=== PATIENT | male | born 1970 ===

== ENCOUNTER 2025-02-26 15:54 | Outpatient (AMB) | payer OTHER, SELFPAY ==
--- NOTE | 2025-02-26 16:01 | A.OFFVIS_ITS ---
Intake Visit Reasons: Headaches, MRI Review Allergies No Known Allergies Allergy (Verified 02/24/25 11:24) Medication List - Last Reconciled 02/26/25 by Guerita Reeves MD amlodipine 2.5 mg PO DAILY HPI Comments Details: This is a 55-year-old generally healthy man recently diagnosed with hypertension for which she has started lisinopril 5 mg a day. Towards the end of December without any trauma he developed pain in the right side of the face in the cheek area going to the eye with some blurring of the eye and pain in the right anterior temporal region which was constant and lasted about a month. There were times where it would be much more intense. The pain subsided spontaneously and there has been no pain in the last 1 month. Six months or 7 months prior to that he had had a tooth extraction from the right upper jaw but he was seen by an security manager and everything checked out to be normal. He has never had any symptoms like this before. He has some difficulty with and tenderness over the right eye. The vision has cleared but he has not seen an eye doctor. [facility] Medical History (Updated 02/26/25 @ 16:08 by Guerita Reeves MD) Headache Review of Systems Const Reports headache(s) Eyes Reports blurry vision ENT Reports otalgia, Reports headache(s) and Reports hearing loss GI Reports diarrhea Musc Reports arthralgias Neuro Details: Facial pain on the right Reports headache(s) Physical Exam Neuro Other: Mini Mental Status Exam Level of Consciousness:?Alert.? Orientation:?Knows correct year, month, date, day and season.?Knows correct cit y, county and state. Knows correct location and floor.? Registration:?Able to register 3 objects.? Attention:?Serial 7's performed?? accurately.? Recall:?Able to recall 3 out of 3 objects.? Language:?Normal spontaneous speech, fluency, repetition, naming, comprehension, reading, and writing.? ?? Total Score:?30/30.? Neurological Abnormal neurological findings:??Mild tenderness over right eye and right TMJ. ? Mental Status:?Alert and oriented X 3.?Normal attention, orientation, memory, and affect.? Cranial Nerves:?Pupils are equal, round and reactive to light. Fundoscopy shows normal disc bilaterally. External ocular muscles are intact. Visual brooks are full, no ptosis. Face is symmetrical, no facial weakness or droop. Facial sensations are normal.? Tongue protrudes in midline. Palate elevates symmetrically. Shoulder?? shrugging is normal.? Motor Examination:?Normal muscle tone, bulk and strength.?No atrophy or fasciculations.?No drift of the extended upper extremities.?Deep tendon reflexes are 2+.?Plantars?? are flexor.? ?Motor Strength:? Proximal Muscles (out of 5):?5 Distal Muscles (out of 5):?5 Neck Flexors (out of 5):?5 Neck Extensors (out of 5):?5 Deltoid (out of 5):?5 Biceps (out of 5):?5 Triceps (out of 5):?5 Serratus Anterior (out of 5):?5 Wrist Extensors (out of 5):?5 APB (out of 5):?5 Finger Spread (out of 5):?5 Ileopsoas (out of 5):?5 Quadriceps (out of 5):?5 Hamstrings (out of 5):?5 Tibialis Anterior (out of 5):?5 Peronei (out of 5):?5 EDB (out of 5):?5 Gastrocnemius (out of 5):?5 Straight Leg Raising:?90 degrees.? Sensory Exam:?Normal light touch,?? temperature, pinprick, vibration and joint- position sensations.?Rhomberg?? sign is absent.? Coordination:?No ataxia,?no titubation,?yvyrar-cn-hizh, okjk-xtbw-[id number] test, and rapid alternating?? movements were normal.? Gait Exam:?Normal. ? Cerebellar Signs:?Slipnu-dm-ixse and?? gqlg-bj-utqt is normal.?No dysdiadochokinesia.? Extrapyramidal System:?No tremor or?rigidity, normal facial expressions.?No bradykinesia. No bradyphrenia. Normal arm swing and posture. No propulsion or retropulsion.? Speech:?Normal,?no dysphasia or dysarthria.? General Examination GENERAL APPEARANCE:??Morbid obesity, in no acute distress?.? ?? HEAD:??normocephalic,?atraumatic.? ?? EYES:??sclera non-icteric,?conjunctiva clear.? ?? EARS:??auditory canal clear,?tympanic membrane intact, clear.? ?? NOSE:??no lesions.? ?? ORAL CAVITY:??gums normal,?mucosa moist,?no lesions.? ?? THROAT:??clear.? ?? NECK/THYROID:??no cervical lymphadenopathy,?thyroid normal,?neck supple, full range of motion,?no carotid bruit.? ?? SKIN:??no rashes,?no significant?? birthmarks.? ?? HEART:??S1, S2 normal,?no murmurs? ?? LUNGS:??clear anteriorly and ?posteriorly? ?? CHEST:??no gross rib deformity,?clear to ?auscultation.? ?? BACK:??normal exam of spine.? ?? MUSCULOSKELETAL:??normal.? ?? EXTREMITIES:??no edema.? ?? PERIPHERAL PULSES:??normal.? ?? PSYCH:??alert, oriented,?cognitive function intact,?cooperative with exam?,?alert,?? oriented,?cognitive ?function intact,?cooperative with exam.? Assessment & Plan Assessment & Plan (1) Facial pain, acute: Code(s): R51.9 - Headache, unspecified Category: Medical Plan sedrate, Pain has subsided. Will hold off MRI for now. The pain was not typical [place] pain type. Orders: Orders Erythrocyte Sedimentation Rate Today R51.9 - Headache, unspecified Coding Level of Care Code New Pt Level 5 (40939) Diagnoses Facial pain, acute R51.9
--- OUTSIDE RECORDS SUMMARY | 2025-02-26 20:42 | XMS_ITS ---
Author Name [facility] Organization Unknown Results Test Name/Text Value Interpretation Date Range Source PL7 Ab Ser Ql Negative Normal 04/30/2024 - [facility] U1 snRNP Ab Ser IA-aCnc <20 Normal 04/30/2024 - 20 [facility] MI2 Ab Ser Ql Negative Normal 04/30/2024 - [facility] Mj Ab Ser Line blot-aCnc <20 Normal 04/30/2024 - [facility] GWENDOLYN Jo1 Ab Ser IA-aCnc <20 Normal 04/30/2024 - 20 [facility] U2 snRNP Ab Ser Ql Negative Normal 04/30/2024 - [facility] TIF1-gamma Ab Ser Line blot-aCnc <20 Normal 04/30/2024 - 20 [facility] PL12 Ab Ser Ql Negative Normal 04/30/2024 - [facility] Fibrillarin Ab Ser Ql Negative Normal 04/30/2024 - [facility] GWENDOLYN SS-A 52kD Ab Ser IA-aCnc <20 Normal 04/30/2024 - 20 [facility] Ku Ab Ser Ql Negative Normal 04/30/2024 - [facility] SRP Ab SerPl Ql Negative Normal 04/30/2024 - [facility] MDA5 Ab Ser Line blot-aCnc <20 Normal 04/30/2024 - 20 [facility] Ej Ab Ser Ql Negative Normal 04/30/2024 - [facility] OJ Ab Ser Ql Negative Normal 04/30/2024 - [facility] PM/SCL-100 IgG Ser-aCnc <20 Normal 04/30/2024 - 20 [facility] dsDNA Ab Ser IA-aCnc 1.3 IU/mL Normal 04/09/2024 - 10 [facility] cCP IgG SerPl-aCnc 1.2 U/mL Normal 04/09/2024 - [facility] GWENDOLYN SM Ab Ser IA-aCnc <0.7 Normal 04/09/2024 [facility] GWENDOLYN SS-B Ab Ser-aCnc <0.4 Normal 04/09/2024 [facility] GWENDOLYN Jo1 Ab Ser IA-aCnc <0.3 Normal 04/09/2024 [facility] GWENDOLYN SS-A Ab Ser-aCnc <0.4 Normal 04/09/2024 [facility] GWENDOLYN WINDOW/DISTRIBUTION CLERK Ab Ser IA-aCnc 0.7 U/mL Normal 04/09/2024 - [facility] GWENDOLYN Scl70 Ab Ser-aCnc <0.6 Normal 04/09/2024 [facility] M TB IFN-g CD4+ T-cells Bld-aCnc 0.0221 IU/mL Normal 04/08/2024 [facility] M TB IFN-g Bld-Imp Negative Normal 04/08/2024 - [facility] M TBIFN-g CD4+ CD8+T-cells Bld-aCnc 0.0188 IU/mL Normal 04/08/2024 [facility] Mitogen IGNF Bld-aCnc >10.0 Normal 04/08/2024 [facility] Gamma interferon background Bld IA-aCnc 0.036 IU/mL Normal 04/08/2024 [facility] JAN Ser Ql HEp2 subst Negative Normal 04/08/2024 - [facility] JAN Titr Ser HEp2 subst TNP Normal 04/08/2024 - [facility] JAN Pat Ser IF-Imp TNP Normal 04/08/2024 [facility] HCV Ab SerPl Ql IA Negative Normal 04/05/2024 - [facility] HBV surface Ab Ser Ql IA Negative Normal 04/05/2024 - [facility] HBV surface Ab SerPl IA-aCnc 0.3 mIU/mL Normal 04/05/2024 [facility] HBV core Ab SerPl Ql IA Negative Normal 04/05/2024 - [facility] HBV surface Ag SerPl Ql IA Negative Normal 04/05/2024 - [facility] Rheumatoid fact SerPl-aCnc <10.0 I Unit/mL Normal 04/04/2024 - [facility] ESR Bld Qn Westrgrn 12.0 mm/hr Normal 03/13/2024 0 - 15 [facility] CRP SerPl-mCnc <0.5 mg/dL Normal 03/13/2024 - [facility] Glucose SerPl-mCnc 108.0 mg/dL Normal 03/13/2024 70 - 199 [facility] AST SerPl-cCnc 26.0 unit/L Normal 03/13/2024 5 - 40 [facility] Anion Gap SerPl-sCnc 8.0 Normal 03/13/2024 5 - 14 [facility] Sodium SerPl-sCnc 142.0 mmol/L Normal 03/13/2024 135 - 14 5 [facility] ALT SerPl-cCnc 27.0 unit/L Normal 03/13/2024 7 - 52 [facility] BUN SerPl-mCnc 15.0 mg/dL Normal 03/13/2024 9 - 20 [facility] Prot SerPl-mCnc 6.5 g/dL Normal 03/13/2024 6.4 - 8.5 [facility] Bilirub SerPl-mCnc 0.5 mg/dL Normal 03/13/2024 0.3 - 1 [facility] Albumin SerPl-mCnc 4.3 g/dL Normal 03/13/2024 3.5 - 5 [facility] Chloride SerPl-sCnc 107.0 mmol/L Normal 03/13/2024 98 - 107 [facility] Potassium SerPl-sCnc 3.8 mmol/L Normal 03/13/2024 3.5 - 5.1 [facility] ALP SerPl-cCnc 69.0 unit/L Normal 03/13/2024 34 - 104 [facility] Calcium SerPl-mCnc 8.7 mg/dL Normal 03/13/2024 8.4 - 10.2 [facility] CO2 SerPl-sCnc 27.0 mmol/L Normal 03/13/2024 24 - 32 [facility] eGFRcr SerPlBld CKD-EPI 2020 80.0 mL/min/1.73m2 Normal 03/13/2024 - [facility] BUN/Creat SerPl 13.6 Normal 03/13/2024 12 - 20 [facility] Creat SerPl-mCnc 1.1 mg/dL Normal 03/13/2024 0.7 - 1.3 CT [facility] MCH RBC Qn Auto 30.5 pcg Normal 03/12/2024 25 - 33 [facility] Neutrophils # Bld Auto 6.5 K/mcL Normal 03/12/2024 1.8 - 7.8 [facility] Basophils/leuk NFr Bld Auto 0.3 % Normal 03/12/2024 0 - 2 [facility] Hgb Bld-mCnc 15.3 g/dL Normal 03/12/2024 13.5 - 18 [facility] WBC # Bld Auto 10.9 K/mcL Above high normal 03/12/2024 4 - 1 0.5 [facility] MCHC RBC Auto-mCnc 34.4 g/dL Normal 03/12/2024 32 - 36 [facility] Monocytes/leuk NFr Bld Auto 9.1 % Normal 03/12/2024 2 - 12 [facility] PMV Bld Auto 7.9 FL Normal 03/12/2024 7.4 - 11.4 [facility] Eosinophil # Bld Auto 0.0 K/mcL Normal 03/12/2024 0 - 0.5 [facility] RDW RBC Auto-Rto 14.6 % Normal 03/12/2024 12.1 - 17.7 [facility] RBC # Bld Auto 5.02 M/mcL Normal 03/12/2024 4.7 - 6 [facility] Lymphocytes/leuk NFr Bld Auto 30.4 % Normal 03/12/2024 20 - 48 [facility] Platelet # Bld Auto 216.0 K/mcL Normal 03/12/2024 150 - 450 [facility] Eosinophil/leuk NFr Bld Auto 0.4 % Normal 03/12/2024 0 - 6 [facility] Monocytes # Bld Auto 1.0 K/mcL Above high normal 03/12/2024 0 - 0.8 [facility] MCV RBC Auto 88.6 FL Normal 03/12/2024 78 - 100 [facility] Lymphocytes # Bld Auto 3.3 K/mcL Above high normal 03/12/2024 1 - 3.2 [facility] Basophils # Bld Auto 0.0 K/mcL Normal 03/12/2024 0 - 0.2 [facility] Neutrophils/leuk NFr Bld Auto 59.8 % Normal 03/12/2024 44 - 74 [facility] Hct VFr Bld Auto 44.4 % Normal 03/12/2024 40 - 54 [facility] History of Medication Use Medication Directions Dispensed Refills Start Date End Date Stat bupivacaine (PF) (MARCAINE) 0.25 % injection 4 mL 4 mL, injection, Once, On Mon05/28/24 at 1015, For 1 dose 05/28/2024 05/28/2024 completed triamcinolone acetonide (KENALOG-40) 40 mg/mL injection 40 mg 40 mg, intramuscular, Once, On Mon05/28/24 at 1015, For 1 dose 05/28/2024 05/28/2024 completed albuterol HFA (ProAir HFA) 90 mcg/actuation inhaler Inhale 2 puffs by mouth every 6 (six) hours if needed for wheezing. 05/01/2024 active albuterol HFA (ProAir HFA) 90 mcg/actuation inhaler Inhale 2 puffs by mouth every 6 (six) hours if needed for wheezing. 05/01/2024 active fluticasone-umeclidi nium-vilanterol (Trelegy Ellipta) 200-62.5-25 mcg inhaler Inhale 1 puff (200 mcg total) by mouth 1 (one) time each day. Rinse mouth with water after use to reduce aftertaste and incidence of candidiasis. Do not swallow. 05/01/2024 active fluticasone-umeclidi nium-vilanterol (Trelegy Ellipta) 200-62.5-25 mcg inhaler Inhale 1 puff (200 mcg total) by mouth 1 (one) time each day. Rinse mouth with water after use to reduce aftertaste and incidence of candidiasis. Do not swallow. 05/01/2024 active gabapentin (NEURONTIN) 100 mg capsule Take 1 capsule (100 mg total) by mouth 3 (three) times a day. 03/07/2024 04/07/2024 active tiZANidine (Zanaflex) 4 mg capsule Take 1 capsule (4 mg total) by mouth 3 (three) times a day if needed for muscle spasms. 03/07/2024 04/03/2024 active gabapentin (NEURONTIN) 100 mg capsule Take 1 capsule (100 mg total) by mouth 3 (three) times a day. 03/07/2024 active tiZANidine (Zanaflex) 4 mg capsule Take 1 capsule (4 mg total) by mouth 3 (three) times a day if needed for muscle spasms. 03/07/2024 active ixekizumab (Taltz Autoinjector) 80 mg/mL injection Inject 1 mL (80 mg total) under the skin every 28 (twenty-eight) days. 11/06/2020 03/07/2024 aborted meloxicam (MOBIC) 15 mg tablet Take 1 Tablet by mouth daily. 04/19/2024 aborted acetaminophen (TYLENOL) 500 mg tablet Take 500 mg by mouth every 6 hours as needed. active acetaminophen (TYLENOL) 500 mg tablet Take 500 mg by mouth every 6 hours as needed. active meloxicam (MOBIC) 15 mg tablet Take 1 Tablet by mouth daily. active upadacitinib (Rinvoq) 15 mg tablet extended release 24 hr Take 15 mg by mouth 1 (one) time each day. active upadacitinib (Rinvoq) 15 mg tablet extended release 24 hr Take 15 mg by mouth 1 (one) time each day. active Allergies Allergen Reaction Severity Comment Documented Date Source Statu s ADALIMUMAB Severe mood changes 12/13/2018 [facility] active ETANERCEPT Severe mood changes 12/12/2017 [facility] active OTHER Seasonal Allergies 06/13/2017 [facility] active Problems Problem Status Onset Date Problem Type Date of Resolution Source Greater trochanteric bursitis of right hip active 2024-05-11 8 ProblemAct [facility] Abnormal stress test active 2023-11-13 4 ProblemAct [facility] GERD (gastroesophageal reflux disease) active 2016-05-11 7 ProblemAct [facility] Ankylosing spondylitis of lumbosacral region active 2017-08-11 1 ProblemAct [facility] Tubular adenoma active 2023-12-13 3 ProblemAct [facility] DDD (degenerative disc disease), lumbar active 3 ProblemAct [facility] Right lumbar radiculitis active 2017-01-12 0 ProblemAct [facility] Degenerative lumbar spinal stenosis active 3 ProblemAct [facility] Spondyloarthropathy active 3 ProblemAct [facility] Epigastric discomfort active 2023-12-13 3 ProblemAct [facility] Gastritis active 2023-12-13 3 ProblemAct [facility] Chest pain active 2023-11-13 4 ProblemAct [facility] Sacroiliitis active 2018-08-12 6 ProblemAct [facility] Allergic rhinitis active 2016-05-11 7 ProblemAct [facility] Shortness of breath active 2023-12-13 3 ProblemAct [facility] Osteoarthritis of right hip active 2017-07-12 3 ProblemAct [facility] Abdominal cramping active 2023-12-13 3 ProblemAct [facility] Fecal urgency active 2023-12-13 3 ProblemAct [facility] Sacroiliac pain active EncounterDiagnosisAct [facility] management active EncounterDiagnosisAct [facility] Immunizations Vaccine Date Source Lot Number Status [employer] SARS-CoV-2 COVID-19, mRNA, LNP-S, preservative free 08/01/2020 [facility] [id number] completed [employer] SARS-CoV-2 COVID-19, mRNA, LNP-S, preservative free 07/11/2020 [facility] [id number] completed Influenza trivalent, 0.5mL, preservative free (Fluarix; FluLaval; Fluzone) ages 6mo and older (Afluria) 3 years and older 01/29/2020 [facility] completed Influenza trivalent, with pr eservative (Fluzone; Afluria) 6mo and older 01/29/2020 [facility] completed Tdap Tetanus diptheria acell ular pertussis (Boostrix; Adacel) 7yo and older 12/03/2015 [facility] completed Encounters Encounter Type Encounter Reason Primary Diagnosis Location Date Ambulatory Follow-up Ankylosing spondylitis of lumbosacral region [facility] 05/28/2024 Ambulatory Pain, unspecified Pain, unspecified [facility] 05/14/2024 Ambulatory Shortness of breath Shortness of breath [facility] 05/01/2024 Ambulatory Centrilobular emphysema Centrilobular emphysema [facility] 05/01/2024 Ambulatory Follow-up Ankylosing spondylitis of lumbosacral region [facility] 04/19/2024 Ambulatory Other disorders of lung Other disorders of lung [facility] 04/10/2024 Ambulatory Other disorders of lung Other disorders of lung [facility] 04/03/2024 Ambulatory Ankylosing spondylitis of lumbosacral region Ankylosing spondylitis of lumbosacral region [facility] 03/21/2024 Ambulatory Ankylosing spondylitis of lumbosacral region Ankylosing spondylitis of lumbosacral region [facility] 03/21/2024 Ambulatory Ankylosing spondylitis of lumbosacral region Ankylosing spondylitis of lumbosacral region [facility] 03/21/2024 Ambulatory Ankylosing spondylitis of lumbosacral region Ankylosing spondylitis of lumbosacral region [facility] 03/21/2024 Ambulatory Ankylosing spondylitis of lumbosacral region Ankylosing spondylitis of lumbosacral region [facility] 03/21/2024 Ambulatory Unilateral primary osteoarthritis, right hip Unilateral primary osteoarthritis, right hip [facility] 03/07/2024 Ambulatory [facility] 07/29/2022 Care Team Organization Name Specialty Phone Email Start Date End Da te [facility] Eugene Borjas Primary Care 03/27/2024 [facility] Eugene Borjas Primary Care 03/21/2024 [facility] Eugene Borjas Primary Care 03/11/2024 [facility] Eugene Shethson Primary Care 03/07/2024 [facility] Jerrell Gallegos Primary Care 09/15/2022 10/30/19 [facility] Eloy Du Primary Care 05/18/2022 10/30/19 [facility] Baldomero Mclaughlin Primary Care 01/18/2022
--- OUTSIDE RECORDS SUMMARY | 2025-02-26 20:42 | XMS_ITS | Clinical Summary ---
[facility] [place] [id number] Care Team Providers Care Md Senior Research Scientist Name Role Phone Eugene Borjas Primary Care Provider [phone] Allergies Active Allergy Reactions Criticality Noted Date Comments Etanercept Medium 12/12/2017 Severe mood changes Adalimumab Medium 12/13/2018 Severe mood changes Seasonal Low 06/13/2017 Runny nose, itchy eyes Medications Medication Sig Dispensed Refills Start Date End Date Status cetirizine (ZYRTEC) 10 MG tablet Take 10 mg by mouth daily as needed. 0 Active ciclopirox (PENLAC) 8 % solution ciclopirox 8 % topical solution 0 Active GABAPENTIN PO Take 300 mg by mouth. 0 Active doxycycline (VIBRAMYCIN) 100 MG capsule doxycycline hyclate 100 mg capsule 0 Active gabapentin (NEURONTIN) 300 MG capsule gabapentin 300 mg capsule 0 Active predniSONE (DELTASONE) tablet 10 mg prednisone 10 mg tablet 0 02/06/2019 Active Mupirocin 2 % KIT mupirocin 2 % topical ointment 0 Active aspirin 81 MG EC tablet Take 1 tablet (81 mg total) by mouth 2 (two) times a day. 42 tablet 0 07/12/2021 Active cephalexin (Keflex) 500 MG capsule Take 1 capsule (500 mg total) by mouth 4 (four) times a day. Start after surgery 4 capsule 0 07/12/2021 Active oxyCODONE (ROXICODONE) 5 MG immediate release tablet Take 1 tablet (5 mg total) by mouth every 6 (six) hours as needed for pain. Do not start until after surgery 15 tablet 0 07/12/2021 Active Active Problems Problem Noted Date Diagnosed Date Status post arthroscopic surgery of right knee 0 08/16/2021 Spondyloarthropathy 12/13/2018 Sacroiliitis 09/05/2018 Greater trochanteric bursitis, right 04/04/2017 Right lumbar radiculitis 01/30/2017 Spinal stenosis of lumbar re gion with neurogenic claudication 01/30/2017 Bulging lumbar disc 01/30/2017 Family History Medical History Relation Name Comments Early Father HIV Arthritis Mother RA Asthma Mother Relation Name Status Comments Father Mother Alive Social History Tobacco Use Types Packs/Day Years Used Date Smoking Tobacco: Some Days Cigarettes 0.5 Started: 2008; Last attempted to quit: 2009 Cigars Smokeless Tobacco: Current Tobacco Cessation:Ready to Q uit: No; Counseling Given: No Comments:occasional cigar Alcohol Use Standard Drinks/Week Comments Yes 2 (1 standard drink = 0.6 oz pur e alcohol) occasionally on weekends Sex and Gender Information Value Date Recorded Sex Assigned at Male 06/25/2018 10:53 AM EDT Gender Identity Male 09/04/2018 10:41 AM EDT Sexual Orientation Not on file Job Start Date Occupation Industry Not on file Not on file Not on file Last Filed Vital Signs Vital Sign Reading Time Taken Comments Blood Pressure 113/76 10/28/2019 3:48 PM EDT Pulse 86 10/28/2019 3:48 PM EDT Temperature 36.7 C (98.1 F) 10/28/2019 3:48 PM EDT Respiratory Rate 18 09/16/2019 10:40 AM EDT Oxygen Saturation 98% 10/28/2019 3:48 PM EDT Inhaled Oxygen Concentration - - Weight 74.8 kg (165 lb) 08/16/2021 10:47 AM EDT Height 172.7 cm (5' 8 ) 08/16/2021 10:47 AM EDT Body Mass Index 25.09 08/16/2021 10:47 AM EDT Plan of Treatment Health Maintenance Due Date Last Done Comments Hepatitis B Vaccines (1 of 3 - 3-dose series) 1970 Hepatitis C Screening 1970 Pneumococcal Vaccine (1 of 2 - PCV) 01/11/1976 Depression Screening 1982 Preventative Health Evaluation 01/11/1988 Tobacco Cessation Counseling 01/11/1988 Colon Cancer Screening (Colonoscopy) 2015 BMI Counseling 12/20/2019 12/19/2018 Shingrix-Zoster Vaccine (1 o f 2) 01/11/2020 COVID-19 Vaccine (3 - 2024-2 6 season) 2024 08/01/2020, 07/11/2020 Influenza Vaccine (#1) 2024 01/29/2020 DTap / Tdap / Td (2 - Td or Tdap) 12/02/2025 12/03/2015 RSV Ped < 20 months Aged Out No longe r eligible based on patient's age to complete this topic Advance Directives For more information, please contact: [phone] Documents on File Type Date Recorded Patient Life Skills Consultant Expl anation Advance Directive and Living Will 02/20/2017 6:57 AM Advance Directive and Living Will 03/07/2019 OR BOOK[facility] 12/03/2018 Care Teams Md Senior Research Scientist Relationship Specialty Start Date End Date Eugene Borjas PA PCP - General Physician Scientific Advisor 05/24/21
--- OUTSIDE RECORDS SUMMARY | 2025-02-26 20:42 | XMS_ITS | Clinical Summary ---
Author Organization [address] [place] [address] Address [address] [place] [address] Phone Care Team Providers Care Remote Recruiter Name Role Phone Jerrell Gallegos MD Primary Care Provider [phone] Allergies Active Allergy Reactions Criticality Noted Date Comments Adalimumab Medium 12/13/2018 Severe mood changes Etanercept 12/12/2017 Severe mood changes Medications acetaminophen (TYLENOL) 500 mg tablet Take 500 mg by mouth every 6 hours as needed. Active upadacitinib (Rinvoq) 15 mg tablet extended release 24 hr Take 15 mg by mouth 1 (one) time each day. Active fluticasone-umec lidinium-vilante rol (Trelegy Ellipta) 200-62.5-25 mcg inhaler Inhale 1 puff (200 mcg total) by mouth 1 (one) time each day. Rinse mouth with water after use to reduce aftertaste and incidence of candidiasis. Do not swallow. 1 each 12 5 05/01/19 26 Active albuterol HFA (ProAir HFA) 90 mcg/actuation inhaler Inhale 2 puffs by mouth every 6 (six) hours if needed for wheezing. 6.7 g 5 05/01/19 26 Active amLODIPine (NORVASC) 2.5 mg tabletIndication s:History of primary hypertension Take 1 tablet (2.5 mg total) by mouth 1 (one) time each day. 90 each 5 Active doxycycline (VIBRAMYCIN) 100 mg capsule Take 1 capsule (100 mg total) by mouth 2 (two) times a day for 10 days. Take with at least 8 ounces (large glass) of water, do not lie down for 30 minutes after. Administer 2 hours before or after multivitamins, antacids, or other products containing polyvalent cations (i.e., calcium, iron, magnesium, selenium, zinc). 20 each 5 02/01/20 25 benzonatate (TESSALON) 100 mg capsule Take 1 capsule (100 mg total) by mouth 3 (three) times a day if needed for cough for up to 10 days. Do not crush or chew. 30 capsule 5 02/01/20 25 Active Problems Problem Noted Date Diagnosed Date Prediabetes 12/20/2024 Greater trochanteric bursitis of right hip 05/28 Abdominal cramping 01/03/2024 Epigastric discomfort 01/03/2024 Fecal urgency 01/03/2024 Gastritis 01/03/2024 Tubular adenoma 01/03/2024 Shortness of breath 01/03/2024 Abnormal stress test 12/05/2023 Chest pain 12/05/2023 Spondyloarthropathy 12/13/2018 Sacroiliitis 09/05/2018 Ankylosing spondylitis of lumbosacral region 01/2018 Overview (01/03/2024): SI joint fusion Methotrexate August 2017 to Apr 2018 - ineffective Enbrel added 2017: mood swings so it had to be stopped Humira since Setpt. 2017 -stopped 05/01 - ineffective ( ? Pain coming from OA/DDD) SI joint steroid injections : partial relief for back symptoms but not hip pains. Lakia started 11/2019 Osteoarthritis of right hip 08/02/2017 Overview (01/03/2024): minimal on xrays; not present on MRI(09/2019) DDD (degenerative disc disease), lumbar 06/14/19 18 Overview (01/03/2024): MRI 01/2017 Degenerative lumbar spinal stenosis 06/13/2017 Overview (01/03/2024): MRI 01/2017 Right lumbar radiculitis 01/30/2017 Allergic rhinitis 05/27/2016 GERD (gastroesophageal reflux disease) 7 Encounters Date Type Department Care Team Description 01/21/2025 10:45 AM EST Office Visit Walk-In Clinic - [address] [place] [address] Tala Salguero NP Subacute cough (Primary Dx); Acute non-recurrent maxillary sinusitis 12/24/2024 6:39 PM EDT - 12/24/2024 11:59 PM EDT Hospital Encounter Radiology Department - [address] [address] Nonintractable headache, unspecified chronicity pattern, unspecified headache type; Blurry vision, right eye; Hearing loss of right ear, unspecified hearing loss type Discharge Disposition: Home or Self Care 12/20/2024 Results Follow-Up Internal Medicine - [address] [place], [place] [phone] Hector Puentes NP 12/19/2024 8:00 AM EDT Office Visit Internal Medicine - [address] [place] [phone] Hector Puentes NP Nonintractable headache, unspecified chronicity pattern, unspecified headache type (Primary Dx); Blurry vision, right eye; Hearing loss of right ear, unspecified hearing loss type; History of primary hypertension from Last 3 Months Immunizations Immunization Administration Dates Next Due Influenza trivalent, 0.5mL, preservative free (Fluarix; FluLaval; Fluzone) ages 6mo and older (Afluria) 3 years and older 01/29/2020 Influenza trivalent, with pr eservative (Fluzone; Afluria) 6mo and older 01/29/2020 Pfizer SARS-CoV-2 COVID-19, mRNA, LNP-S, preservative free 08/01/2020,07/11/2020 Tdap Tetanus diptheria acell ular pertussis (Boostrix; Adacel) 7yo and older 12/03/2015 Surgical History Surgery Date Site/Laterality Comments LUMBAR EPIDURAL INJECTION 02/20/2017 Right PROCEDURE:LUMBAR EPIDURAL INJECTION;COMMENT:Procedure: INJECTION ANESTHETIC AGENT LUMBAR; Surgeon: Mary Alice Epstein MD; [facility] [facility]; Service: Rehab Medicine; Laterality: Right; LUMBAR EPIDURAL INJECTION 06/27/2018 N/A PROCEDURE:LUMBAR EPIDURAL INJECTION;COMMENT:Procedure: LOCAL L3/4 INJECTION STEROID LUMBAR EPIDURAL WITH IMAGING; Surgeon: Swati Gomes MD; Location: [facility]; Service: Rehab Medicine; Laterality: N/A; LUMBAR EPIDURAL INJECTION 08/22/2018 N/A PROCEDURE:LUMBAR EPIDURAL INJECTION;COMMENT:Procedure: LOCAL L3-4 LUMBAR EPIDURAL STEROID INJECTION; Surgeon: Swati Gomes MD; Location: [facility]; Service: Rehab Medicine; Laterality: N/A; WRIST FRACTURE SURGERY Right PROCEDURE:WRIST FRACTURE SURGERY ROTATOR CUFF REPAIR Right PROCEDURE:ROTATOR CUFF REPAIR SHOULDER SURGERY PROCEDURE:SHOULDER SURGERY OTHER SURGICAL HISTORY 02/20/2017 Right PROCEDURE: NJX DX/THER SBST EPIDURAL/SUBARACH LUMBAR/SACRAL; COMMENT: R L5-S1 transforaminal epidural steroid inj. Dr Mary Alice Epstein ([facility]) APPENDECTOMY PROCEDURE: IA APPENDECTOMY SHOULDER SURGERY Right PROCEDURE: HISTORICAL SHOULDER SURGERY; COMMENT: bone spur and RTC WRIST SURGERY Right PROCEDURE: HISTORICAL WRIST SURGERY COLONOSCOPY 07/21/2021 PROCEDURE: HISTORICAL COLONOSCOPY; COMMENT: multiple tubular adenomas ESOPHAGOGASTRODUODENOSCOPY 07/21/2021 PROCEDURE: IA EGD TRANSORAL BIOPSY SINGLE/MULTIPLE; COMMENT: peptic gastritis/duodenitis Medical History Medical History Date Comments GERD (gastroesophageal reflux disease) DX:GERD (gastroesophageal reflux disease) Osteoarthritis DX:Osteoarthriti s Visual impairment DX:Visual impairment;COMMENT:eyeglasses Ankylosing spondylitis of elizabeth mbosacral region ([facility] V24, [facility] V28) DX:Ankylosing spondy litis of lumbosacral region ([facility]) DDD (degenerative disc disease), lumbar DX:DDD (degenerative disc disease), lumbar Allergic rhinitis DX:Allergic rh initis Allergic rhinitis 05/27/2016 DX:Allergic rh initis GERD (gastroesophageal reflux disease) 05/27/2016 DX:GERD (gastroesophageal reflux disease) DDD (degenerative disc disease), lumbar 06/13/2017 DX:DDD (degenerative disc disease), lumbar; COMMENT: MRI 01/2017 Degenerative lumbar spinal stenosis 06/13/2017 DX:Degenerative lumbar spinal stenosis; COMMENT: MRI 01/2017 Irritable bowel syndrome DX:Irri table bowel syndrome Abdominal cramping DX:Abdominal cramping Epigastric discomfort DX:Epigast luis discomfort Fecal urgency DX:Fecal urgency Tubular adenoma DX:Tubular adeno ma Gastritis DX:Gastritis Family History Medical History Relation Name Comments Thyroid disease Daughter Early Father HIV Arthritis Mother RA Asthma Mother Hypertension Mother asthma, kidney stones, arthritis Other cancer Sister Uterine Relation Name Status Comments Daughter Alive Father Mother Sister Alive Son Alive Social History Tobacco Use Types Packs/Day Years Used Date Smoking Tobacco: Some Days Cigars Passive Smoke Exposure: Current Smokeless Tobacco: Never Tobacco Cessation:Ready to Q uit: Not Asked; Counseling Given: Not Answered Comments:Ex smoker cigarettes stop 15 to 20 yrs currently smokes cigars reports 05/01/24 Alcohol Use Standard Drinks/Week Comments Yes 0 (1 standard drink = 0.6 oz pur e alcohol) occasional Transportation Answer Date Recorded Has the lack of transportati on kept you from meetings, work, or from getting things needed for daily living? No Has the lack of transportati on kept you from medical appointments or from getting medications? No 05/06/2024 Living Situation Answer Date Recorded What is your living situation? Unrecognized valu e 05/06/2024 Interpersonal Safety Answer Date Record ed Physical Abuse Unrecognized value 05/14/2024 Verbal Abuse Unrecognized value 05/14/2024 Sex and Gender Information Value Date Recorded Sex Assigned at Male 03/20/2024 9:49 AM EST Legal Sex Male 9:07 PM EST Gender Identity Male 03/20/2024 9:49 AM EST Sexual Orientation Straight 03/20/2024 9: 49 AM EST Last Filed Vital Signs Vital Sign Reading Time Taken Comments Blood Pressure 118/74 01/21/2025 10:58 AM EST Pulse 79 01/21/2025 10:58 AM EST Temperature 36.9 C (98.4 F) 01/21/2025 10:58 AM EST Respiratory Rate 16 01/21/2025 10:5 8 AM EST Oxygen Saturation 99% 01/21/2025 10: 58 AM EST Inhaled Oxygen Concentration - - Weight 79.7 kg (175 lb 12.8 oz) 12/19/2024 8:11 AM EDT Height 172.7 cm (5' 8 ) 05/28/2024 8:03 AM EDT Body Mass Index 26.73 05/28/2024 8:03 AM EDT Plan of Treatment Health Maintenance Due Date Last Done Comments Hepatitis B Vaccines (1 of 3 - 19+ 3-dose series) 1989 Pneumococcal Vaccine: 50+ Years (1 of 2 - PCV) 1989 HIV Screening 04/12/2019 RSV Immunization Adult Patients (1 - Risk 50-74 years 1-dose series) 01/11/2020 Zoster Vaccines (1 of 2) 01/11/2020 Depression Screening 03/13/2024 COVID-19 Vaccine (3 - 2024-2 6 season) 2024 08/01/2020, 07/11/2020 Influenza Vaccine (#1) 2024 , 01/29/2020 Social Influencers of Health Screening 05/06/2025 05/06/2024 DTaP,Tdap,and Td Vaccines (2 - Td or Tdap) 12/02/2025 12/03/2015 Cholesterol Screening (Lipid Panel) 05/04/2027 05/04/2022 Colorectal Cancer Screening: Colonoscopy 07/22/2031 07/21/2021 Hepatitis C Screening Completed 04/04/2024 , 04/07/2021 HIB Vaccines Aged Out No longer eligi ble based on patient's age to complete this topic HPV Vaccines Aged Out No longer eligi ble based on patient's age to complete this topic Hepatitis A Vaccines Aged Out No long er eligible based on patient's age to complete this topic IPV Vaccines Aged Out No longer eligi ble based on patient's age to complete this topic MMR Vaccines Aged Out No longer eligi ble based on patient's age to complete this topic Meningococcal ACWY Vaccine Aged Out N o longer eligible based on patient's age to complete this topic Meningococcal B Vaccine Aged Out No l onger eligible based on patient's age to complete this topic RSV Immunization Patients Under 20 months Aged Out No longer eligible b ased on patient's age to complete this topic Varicella Vaccines Aged Out No longer eligible based on patient's age to complete this topic Procedures Procedure Name Priority Date/Time Associated Diagnosis Comments POC RAPID STREP A Routine 01/21/2025 2:4 7 PM EST Subacute cough POC RAPID [id number], MOLECULAR Routine 01/21/2025 11:34 AM EST Subacute cough MR BRAIN WO CONTRAST Routine 12/24/2024 7:34 PM EDT Nonintractable headache, unspecified chronicity pattern, unspecified headache type Blurry vision, right eye Hearing loss of right ear, unspecified hearing loss type THYROID STIMULATING HORMONE WITH REFLEX TO FREE T4 AND FREE T3 Routine 12/19/2024 8:53 AM EDT Blurry vision, right eye Hearing loss of right ear, unspecified hearing loss type BORRELIA BURGDORFERI ANTIBODY Routine 12/19/2024 8:53 AM EDT Blurry vision, right eye Hearing loss of right ear, unspecified hearing loss type HEMOGLOBIN A1C Routine 12/19/2024 8:53 AM EDT Blurry vision, right eye Hearing loss of right ear, unspecified hearing loss type TREPONEMA PALLIDUM ANTIBODY WITH REFLEX TO RPR AND PARTICLE AGGLUTINATION Routine 12/19/2024 8:53 AM EDT Blurry vision, right eye Hearing loss of right ear, unspecified hearing loss type HEPATITIS C ANTIBODY Routine 04/04/2024 3:17 PM EST Pneumonitis Interstitial lung disease (CMS/HCC V24, CMS/HCC V28) Abnormal CXR LIPID PANEL Routine 05/04/2022 HM COLONOSCOPY Routine 07/21/2021 from Last 3 Months or Most Recently Relevant to Health Maintenance Results * POC rapid strep A manually resulted (01/21/2025 2:47 PM EST) Rapid Strep A Screen POC Negative Negative Internal Control Pass Yes Yes Swab Structure of anterior region of neck / Unknown 01/21/2025 2:47 PM EST Tala Salguero NP POINT OF CARE TEST ENTER/EDIT ORDERABLES Final Result * Poc Rapid [id number], MOLECULAR (01/21/2025 11:34 AM EST) COVID-19/SARS- COV-2 Rapid POC Negative Negative Internal Control Pass Yes Yes Swab Nasopharyngeal structure / Unknown 01/21/2025 11:34 AM EST Tala Salguero POINT OF CARE TEST ENTER/EDIT ORDERABLES Edited Result - Final * MR Brain wo Contrast (12/24/2024 7:34 PM EDT) Anatomical Region Laterality Modality Head and Neck Magnetic Resonan ce 12/26/2024 1:56 AM EDT Narrative 12/26/2024 2:01 AM EDT MRI of the brain without intravenous contrast. HISTORY: Headaches. Examination was performed on 1.5 Zenia magnet without administration of intravenous contrast. No prior MRI examinations are available for comparison. There is no evidence of midline shift, extra or intra-axial blood fluid collections. There is no visible masses or mass effect, territorial areas of restricted diffusion or abnormal magnetic susceptibility artifact. Ventricular system is symmetric and normal in size. Fourth ventricle and basal cisterns are midline and patent. There are a few nonspecific foci of abnormally increased FLAIR signal in the subcortical deep and periventricular white matter of both cerebral hemispheres. No focal signal abnormalities identified in the posterior fossa. Ventricular system is symmetric and normal in size. Fourth ventricle and basal cisterns are midline and patent. Paranasal sinuses and thumb mastoid processes are aerated. CONCLUSIONS: Nonspecific white matter signal abnormalities in both cerebral hemispheres. Major differential diagnosis should include chronic small vessel ischemia, infectious/inflammatory etiology such as Lyme disease, multiple sclerosis, vasculitis among the other possibilities. -------- FINAL REPORT -------- Dictated By: Peyton Garcia Dictated Date: 12/26/2024 01:56 ET Assigned Physician: Peyton Garcia Reviewed and Electronically Signed By: Peyton Garcia Signed Date: 12/26/2024 02:01 ET Workstation ID: [id number] Transcribed By: Self Edit Transcribed Date: 12/26/2024 01:56 ET Procedure Note Peyton Garcia MD - 12/26/2024 MRI of the brain without intravenous contrast. HISTORY: Headaches. Examination was performed on 1.5 Zeina magnet without administration ofintravenous contrast. No prior MRI examinations are available forcomparison. There is no evidence of midline shift, extra or intra-axial blood fluidcollections. There is no visible masses or mass effect, territorial areasof restricted diffusion or abnormal magnetic susceptibility artifact. Ventricular system is symmetric and normal in size. Fourth ventricle andbasal cisterns are midline and patent. There are a few nonspecific foci of abnormally increased FLAIR signal inthe subcortical deep and periventricular white matter of both cerebralhemispheres. No focal signal abnormalities identified in the posteriorfossa. Ventricular system is symmetric and normal in size. Fourthventricle and basal cisterns are midline and patent. Paranasal sinuses andthumb mastoid processes are aerated. CONCLUSIONS: Nonspecific white matter signal abnormalities in both cerebralhemispheres. Major differential diagnosis should include chronic smallvessel ischemia, infectious/inflammatory etiology such as Lyme disease,multiple sclerosis, vasculitis among the other possibilities. -------- FINAL REPORT -------- Dictated By: Peyton Garcia Dictated Date: 12/26/2024 01:56 ET Assigned Physician: Peyton Garcia Reviewed and Electronically Signed By: Peyton Garcia Signed Date: 12/26/2024 02:01 ET Workstation ID: [id number] Transcribed By: Self Edit Transcribed Date: 12/26/2024 01:56 ET Hector Puentes NP IMG MRI PROCEDURES Final Resul t * Treponema pallidum antibody with reflex to RPR and particle agglutination (12/19/2024 8:53 AM EDT) T. Pallidum Antibodies Negative Negative LAB CHEMISTRY METHOD 12/19/2024 12:33 PM EDT [facility] Blood Venous blood specimen / Unknown Venipuncture / Unknown 12/19/2024 8:53 AM EDT 12/19/2024 8:53 AM EDT Hectorsilvia Lichris SCALE OPERATOR LAB BLOOD ORDERABLES Final Res ult Performing Organization Address City/[facility]/ZIP Co de Phone Number [facility] [address] [place] [address], [place] [phone] * Thyroid stimulating hormone with reflex to free t4 and free t3 (12/19/2024 8:53 AM EDT) [facility] TSH 1.77 0.40 - 4.00 mcIU/mL LAB CHEMISTRY METHOD 12/19/2024 12:22 PM EDT [facility] Blood Venous blood specimen / Unknown Venipuncture / Unknown 12/19/2024 8:53 AM EDT 12/19/2024 8:53 AM EDT Hector Lichris LAB BLOOD ORDERABLES Final Res ult Performing Organization Address [facility] de Phone Number [facility] [address] [place] [address], [place] [phone] * Borrelia burgdorferi antibody (12/19/2024 8:53 AM EDT) [facility] Lyme Ab Negative Negative LAB CHEMISTRY METHOD 12/19/2024 1:16 PM EDT [facility] Comment: No laboratory evidence of infection with B. burgdorferi (Lyme disease). Negative results may occur in patients recently infected (<=14 days) with B. burgdorferi. If recent infection is suspected, repeat testing on a new sample collected in 7- 14 days is recommended. Blood Venous blood specimen / Unknown Venipuncture / Unknown 12/19/2024 8:53 AM EDT 12/19/2024 8:53 AM EDT Hector Jenchris SCALE OPERATOR LAB BLOOD ORDERABLES Final Res ult Performing Organization Address City/[facility]/ZIP Co de Phone Number [facility] [address] [place] [address], [place] [phone] * Hemoglobin A1c (12/19/2024 8:53 AM EDT) [facility] Hemoglobin A1C 5.7 <6.5 % LAB CHEMISTRY METHOD 12/19/2024 2:08 PM EDT [facility] Mean Bld Glu Estim. 117 mg/dL LAB CHEMISTRY METHOD 12/19/2024 2:08 PM EDT [facility] Blood Venous blood specimen / Unknown Venipuncture / Unknown 12/19/2024 8:53 AM EDT 12/19/2024 8:53 AM EDT Hector Puentes NP LAB BLOOD ORDERABLES Final Res ult [facility] [address] [place] [address], [place] [phone] * Hepatitis C antibody (04/04/2024 3:17 PM EST) [facility] Hepatitis C Antibody Negative Negative LAB CHEMISTRY METHOD 04/04/2024 11:37 PM EST [facility] Blood Venous blood specimen / Unknown Venipuncture / Unknown 04/04/2024 3:17 PM EST 04/04/2024 3:17 PM EST Wilma Leslie MD LAB BLOOD ORDERABL ES Final Result [facility] [address] [place] [address], [place] [phone] * Lipid panel (05/04/2022) [facility] LDL/HDL Ratio 2 0 - 4 Triglycerides 138 0 - 150 mg/dL Cholesterol 135 0 - 200 mg/dL HDL 67 >=40 mg/dL LDL Cholesterol 41 0 - 100 mg/dL Blood Venous blood specimen / Unknown us Historical Provider LAB BLOOD ORDERABLES Mile l Result * Colonoscopy (07/21/2021) Colonoscopy no interpreta tion,abstr acted Anatomical Region Laterality Modality Other Historical Provider HEALTH MAINTENANCE Final Result from Last 3 Months or Most Recently Relevant to Health Maintenance Insurance [employer] Care Teams Remote Recruiter Relationship Specialty Start Date End Date Jerrell Gallegos MD [address] [place] [id number] PCP - General Internal Medicine 11/26/24
== END 2025-02-26 16:12 | disposition home or self-care (01) ==
PROVIDERS: Visit Provider Psychiatry & Neurology Neurology
DX: R51.9 Headache, unspecified (principal)
CPT/HCPCS: 99205